=== PATIENT | female | born 1970 ===

== ENCOUNTER 2017-01-19 07:26 | Day surgery (SDC) | payer OTHER ==
[2017-01-19 07:50] VITALS: BMI 25.2
[2017-01-19 08:27] VITALS: O2SAT 100
--- NOTE | 2017-01-19 08:54 | CP.SDSHP ---
Same Day Surgery H & P - History Proposed Procedure: EGD Pre-Op Diagnosis: SEE NOTES - Previous Medical/Surgical History Cardiac: Hypertension Endocrine/Metabolic: Diabetes Neuro: Seizure Disorder, Backaches, Other Misc: Other Pain: 4.Moderate Pain - Allergies Allergies: Allergies No Known Allergies Allergy (Verified 09/10/14 04:20) - Physical Exam General Appearance: N Vital Signs: Vital Signs 01/19/17 08:19 Temperature 97.8 F Pulse Rate 71 Respiratory 19 Rate Blood Pressure 121/80 O2 Sat by Pulse 100 Oximetry Mental Status: Alert & Oriented x3 Neuro: WNL Heart: Other Lungs: WNL GI: Other - {Optional Preform as Required} Breast: WNL Abdomen: Other Rectal: Other Integument: WNL : WNL Ortho: Other ENT: WNL - Impression Pt. Evaluated Today:Candidate for Anesthesia & Procedure: Yes - Date & Time Time: 08:54 Short Stay Discharge - Short Stay Discharge Admitting Diagnosis/Reason for Visit: FUNCTIONAL DYSPEPSIA Disposition: HOME/ ROUTINE
[2017-01-19] MEDS ORDERED: Pantoprazole 40 mg EC Tab PO STA (08:55)
[2017-01-19] MEDS ORDERED: Propofol 10 mg/ml Inj (20 ML) ONE (09:05)
[2017-01-19 10:07] VITALS: TEMP 97.3
[2017-01-19 10:42] VITALS: BP 109/81; PULSE 74; RESP 19
== END 2017-01-19 10:35 | disposition home or self-care (01) ==
LOC: C.ENDO 07:26
PROVIDERS: ATTEND Specialist
DX: K20.9 Esophagitis, unspecified (principal); K29.70 Gastritis, unspecified, without bleeding; K31.84 Gastroparesis
CPT/HCPCS: 43235; 82948; 84703; J2405; J2704

== ENCOUNTER 2017-01-26 08:05 | Day surgery (SDC) | payer OTHER ==
[2017-01-26 09:14] VITALS: O2SAT 100
[2017-01-26] MEDS ORDERED: Propofol 10 mg/ml Inj (20 ML) ONE (10:15)
--- NOTE | 2017-01-26 10:16 | CP.SDSHP ---
Same Day Surgery H & P - History Proposed Procedure: EGD Pre-Op Diagnosis: SEE NOTES - Previous Medical/Surgical History Cardiac: Hypertension Endocrine/Metabolic: Thyroid Disease, Diabetes Neuro: Backaches, Other Misc: Other Pain: 4.Moderate Pain - Allergies Allergies: Allergies No Known Allergies Allergy (Verified 09/10/14 04:20) - Physical Exam General Appearance: N Vital Signs: Vital Signs 01/26/17 08:58 Temperature 97.3 F L Pulse Rate 75 Respiratory 16 Rate Blood Pressure 111/71 O2 Sat by Pulse 100 Oximetry Mental Status: Alert & Oriented x3 Neuro: Other Heart: Other Lungs: WNL GI: Other - {Optional Preform as Required} Breast: WNL Abdomen: Other Rectal: Other Integument: WNL : WNL Ortho: Other ENT: WNL - Impression Pt. Evaluated Today:Candidate for Anesthesia & Procedure: Yes - Date & Time Time: 10:16 Short Stay Discharge - Short Stay Discharge Admitting Diagnosis/Reason for Visit: DYSPEPSIA Disposition: HOME/ ROUTINE
[2017-01-26] MEDS ORDERED: Pantoprazole 40 mg EC Tab PO STA (10:29)
[2017-01-26 11:01] VITALS: TEMP 97.1
[2017-01-26 11:55] VITALS: BP 100/76; PULSE 57; RESP 15
== END 2017-01-26 11:50 | disposition home or self-care (01) ==
LOC: C.ENDO 08:05
PROVIDERS: ATTEND Specialist
DX: K25.9 Gastric ulcer, unspecified as acute or chronic, without hemorrhage or perforation (principal); K20.9 Esophagitis, unspecified; K29.70 Gastritis, unspecified, without bleeding
CPT/HCPCS: 43239; 82948; 84703; 88305; 88342; J2704

== ENCOUNTER 2017-05-18 09:07 | Day surgery (SDC) | payer OTHER ==
[2017-05-18] MEDS ORDERED: Propofol 10 mg/ml Inj (20 ML) ONE (11:01)
--- NOTE | 2017-05-18 11:10 | CP.SDSHP ---
Same Day Surgery H & P - History Proposed Procedure: EGD Pre-Op Diagnosis: SEE NOTES - Previous Medical/Surgical History Endocrine/Metabolic: Thyroid Disease, Diabetes Neuro: Other Misc: Other Previous Surgical History: G.ULCER - Allergies Allergies: Allergies No Known Allergies Allergy (Verified 05/18/17 09:43) - Physical Exam General Appearance: N Vital Signs: Vital Signs 05/18/17 09:20 Temperature 99.6 F Pulse Rate 88 Respiratory 16 Rate Blood Pressure 114/76 O2 Sat by Pulse 100 Oximetry Mental Status: Alert & Oriented x3 Neuro: WNL Heart: WNL Lungs: WNL GI: Other - {Optional Preform as Required} Breast: WNL Abdomen: Other Rectal: Other Integument: WNL : WNL Ortho: WNL ENT: WNL - Impression Pt. Evaluated Today:Candidate for Anesthesia & Procedure: Yes - Date & Time Time: 11:10 Short Stay Discharge - Short Stay Discharge Admitting Diagnosis/Reason for Visit: GASTRIC ULCER Disposition: HOME/ ROUTINE
[2017-05-18] MEDS ORDERED: Sucralfate 1 gm/10 ml Oral Susp UD PO ONE (11:40)
[2017-05-18 12:17] VITALS: TEMP 97.5
[2017-05-18 12:19] VITALS: O2SAT 100
[2017-05-18 13:26] VITALS: BP 101/74; PULSE 84; RESP 23
== END 2017-05-18 12:30 | disposition home or self-care (01) ==
LOC: C.ENDO 09:07
PROVIDERS: ATTEND Specialist
DX: K25.3 Acute gastric ulcer without hemorrhage or perforation (principal); K44.9 Diaphragmatic hernia without obstruction or gangrene
CPT/HCPCS: 45380; 82948; 84703; 88305; J2704